=== PATIENT | male | born 1995 | race Caucasian/White ===

== ENCOUNTER 2020-06-04 12:51 | Emergency (ER) | payer MEDICAID ==
[~2020-06-04] VITALS: Ht 165.1 cm; Wt 81.6 kg
[2020-06-04 13:28] VITALS: Ht 165.1 cm; Wt 81.6 kg
[2020-06-04 15:17] VITALS: BP 138/83
== END 2020-06-04 15:17 | disposition home or self-care (01) ==
LOC: EDBD 12:51 → ED 12:51
DX: S51.811A Laceration without foreign body of right forearm, initial encounter (principal); W54.0XXA Bitten by dog, initial encounter; Y93.89 Activity, other specified; Y92.89 Other specified places as the place of occurrence of the external cause; Y99.8 Other external cause status
CPT/HCPCS: A4570